=== PATIENT | male | born 1990 | race Caucasian/White ===

== ENCOUNTER 2017-09-04 13:18 | Emergency (ER) | payer MEDICAID ==
[~2017-09-04] VITALS: Ht 175.3 cm; Wt 190.5 kg
[2017-09-04 13:29] VITALS: BP_SYST 151
--- NOTE | 2017-09-04 13:33 | NUR ---
Ambulatory to bed 3 accompanied by girlfriend
--- NOTE | 2017-09-04 13:36 | NUR ---
Pt AAOx4 ambulated into ED c/o 09/18 pain to lower back radiating to R butt cheek x 1 month r/t overwork at his job. Pt states he has been taking pain medication, but the pain is returning. No deformities noted to site. No other injuries/complaints per pt/noted. Will continue to monitor
--- NOTE | 2017-09-04 13:39 | NUR ---
ER Dr. Ramirez at bedside examining patient.
[2017-09-04] MEDS ORDERED: HYDROcodone/ACETAMIN 10-325 MG TAB PO ONE (13:45)
[2017-09-04] MEDS ORDERED: KETOROLAC TROMETHAMINE 60 MG/2 ML VIAL IM ONE (13:45)
--- NOTE | 2017-09-04 13:50 | NUR ---
Pt ambulated to radiology in stable condition
--- NOTE | 2017-09-04 14:04 | NUR ---
Pt medicated with Toradol IM and [place] PO. Pt tolerated well. No adverse reactions noted.
[2017-09-04 15:12] LABS: BILIRUBIN,URINE NEGATIVE (NEGATIVE); CLARITY/URINE CLEAR (CLEAR); COLOR,URINE YELLOW (YELLOW); GLUCOSE,URINE NEGATIVE (NEGATIVE); KETONES,URINE NEGATIVE (NEGATIVE); LEUKOCYTE ESTERASE ,URINE NEGATIVE (NEGATIVE); NITRITE, URINE NEGATIVE (NEGATIVE); PROTEIN URINE NEGATIVE (NEGATIVE); UROBILINOGEN,URINE 0.2 (0.2-1.0)
[2017-09-04 15:14] LABS: BLOOD, URINE TRACE (NEGATIVE)
[2017-09-04 15:19] LABS: BACTERIA,URINE FEW /HPF (None Seen); RBC,URINE 0-3 /HPF (0-3); WBC,URINE 0-3 /HPF (0-3)
[2017-09-04 15:20] VITALS: BP_SYST 142
--- NOTE | 2017-09-04 15:20 | NUR ---
Patient given written and verbal discharge instructions and verbalizes understanding. ER MD discussed with patient the results and treatment provided. Patient in stable condition. ID arm band removed. Rx of Motrin and [place] given. Patient educated on pain management and to follow up with PMD. Pain Scale 0. Opportunity for questions provided and answered. Medication side effect fact sheet provided.
== END 2017-09-04 15:20 | disposition home or self-care (01) ==
LOC: SED 13:18
DX: S22.080A Wedge compression fracture of T11-T12 vertebra, initial encounter for closed fracture (principal); M10.9 Gout, unspecified; X58.XXXA Exposure to other specified factors, initial encounter; Y93.89 Activity, other specified; Y92.89 Other specified places as the place of occurrence of the external cause; Y99.8 Other external cause status
CPT/HCPCS: 72100; 81000; 96372; 99285; J1885

== ENCOUNTER 2017-11-27 13:37 | Emergency (ER) | payer SELFPAY ==
[~2017-11-27] VITALS: Ht 175.3 cm; Wt 190.5 kg
[2017-11-27 13:56] VITALS: BP_SYST 161
[2017-11-27 15:15] VITALS: BP_SYST 146
== END 2017-11-27 15:15 | disposition home or self-care (01) ==
LOC: SED 13:37
DX: T16.1XXA Foreign body in right ear, initial encounter (principal); R03.0 Elevated blood-pressure reading, without diagnosis of hypertension; X58.XXXA Exposure to other specified factors, initial encounter; Y93.89 Activity, other specified; Y92.89 Other specified places as the place of occurrence of the external cause; Y99.8 Other external cause status
CPT/HCPCS: 99282

== ENCOUNTER 2021-09-25 20:31 | Emergency (ER) | payer SELFPAY ==
[~2021-09-25] VITALS: Ht 165.1 cm; Wt 249.5 kg
[2021-09-25 20:44] VITALS: BP_SYST 168
--- NOTE | 2021-09-25 20:54 | NUR ---
Labs done in waiting room.
[2021-09-25 21:26] LABS: BASOPHILS # (AUTO) 0.1 K/uL (0.0-0.2); BASOPHILS % (AUTO) 0.7 % (0.0-2.0); EOSINOPHILS # (AUTO) 0.1 K/uL (0.0-0.4); EOSINOPHILS % (AUTO) 0.7 % (0.0-4.0); HEMATOCRIT 37.6 % (36-54); HEMOGLOBIN 12.2 g/dL (14.0-18.0); LYMPHOCYTES # (AUTO) 2.7 K/uL (1.0-5.5); LYMPHOCYTES % (AUTO) 18.6 % (20.5-51.5); MEAN CORPUSCULAR HEMOGLOBIN 25 pg (27-31); MEAN CORPUSCULAR HGB CONC 33 % (32-36); MEAN CORPUSCULAR VOLUME 76 fL (79.0-98.0); MONOCYTES # (AUTO) 1.2 K/uL (0.0-1.0); MONOCYTES % (AUTO) 8.4 % (1.7-9.3); NEUTROPHILS # (AUTO) 10.4 K/uL (1.8-7.7); NEUTROPHILS % (AUTO) 71.6 % (40.0-70.0); PLATELET COUNT (AUTO) 282 K/uL (130-430); RED BLOOD CELL COUNT(AUTO) 4.95 MIL/uL (4.2-6.2); RED CELL DISTRIBUTION WIDTH 16.3 % (9.0-15.0); WHITE BLOOD COUNT (AUTO) 14.5 K/uL (4.8-10.8)
[2021-09-25 21:52] LABS: CREATININE 1.01 mg/dL (0.55-1.30); POTASSIUM 3.8 mmol/L (3.5-5.1)
--- NOTE | 2021-09-25 22:30 | NUR ---
ER MD Rothman at bedside
--- NOTE | 2021-09-25 22:30 | NUR ---
CHAPIN Rothman at bedside.
--- NOTE | 2021-09-25 22:39 | NUR ---
Patient to ER bed 1 to gown for evaluation. Side rails up. Report given to Kiana GAN(reg)/Rufina GAN.
[2021-09-25] MEDS ORDERED: INDO50CA90 PO (22:41)
[2021-09-25] MEDS ORDERED: CEPH-548 PO ×2 (22:41→22:43)
[2021-09-25] MEDS ORDERED: cephALEXin 500 MG CAPSULE PO ONE (22:45)
[2021-09-25] MEDS ORDERED: KETOROLAC TROMETHAMINE 60 MG/2 ML VIAL IM ONE (22:45)
[2021-09-25] MEDS ORDERED: methylPREDNISolone SOD SUCC/PF 62.5 MG/ML VIAL IM ONE (22:45)
--- NOTE | 2021-09-25 23:00 | NUR ---
First contact with patient at this time. Patient presents to ED BIB significant other for c/o of swelling and pain to the left ankle non trauma related. Patient reports pain 10/10 at this time. Patient A/Ox4, VSS, resp even and unlabored, skin warm and dry; patient has notable swelling to the left ankle. Skin coloring normal for ethnicity. Nad noted at this time.
[2021-09-25 23:28] VITALS: BP_SYST 129
--- NOTE | 2021-09-25 23:28 | NUR ---
Patient given written and verbal discharge instructions and verbalizes understanding. ER MD discussed with patient the results and treatment provided. Patient in stable condition. ID arm band removed. Rx of cephalexin and indomethacin given. Patient educated on pain management and to follow up with PMD. Pain Scale 3/10. Opportunity for questions provided and answered. Medication side effect fact sheet provided. Patient A/Ox4, VSS, resp even and unlabored. Patient discharged in wheelchair and accompained by significant other. NAD noted at this time.
== END 2021-09-25 23:28 | disposition home or self-care (01) ==
LOC: SED 20:31
DX: M79.672 Pain in left foot (principal); Z79.899 Other long term (current) drug therapy
CPT/HCPCS: 99284; 80048; 85025; 36415; 96372; J1885; J2930